=== PATIENT | female | born 1995 | race Two or more races ===

== ENCOUNTER 2019-01-31 08:21 | Emergency (ER) | payer OTHER ==
[2019-01-31 08:24] VITALS: BP 120/68; PULSE 107; TEMP 98.2; BMI 23.8
[2019-01-31] MEDS ORDERED: DEXAMETHASONE 4 MG TABLET (FP) PO ONE (08:45)
[2019-01-31] MEDS ORDERED: DEXAMETHASONE SOD PHOSPHATE 10 MG/1 ML VIAL ONE (08:45)
--- NOTE | 2019-01-31 08:45 | PDOC ---
History of Present Illness - General Chief Complaint: Sore Throat Stated Complaint: SORE THROAT Time Seen by Provider: 01/31/19 08:32 History Source: Patient Exam Limitations: No Limitations - History of Present Illness Associated Symptoms: reports: cough, fever/chills. denies: headaches, loss of appetite, nausea/vomiting, shortness of breath, syncope, weakness Past History - Travel Traveled outside of the country in the last 30 days: No Close contact w/someone who was outside of country & ill: No - Past Medical History Allergies/Adverse Reactions: Allergies Allergy/AdvReac Type Severity Reaction Status Date / Time No Known Allergies Allergy Verified 01/31/19 08:24 Home Medications: Ambulatory Orders Ibuprofen [Ibu] 600 mg PO ACDIN 7 Days #21 tablet 01/31/19 COPD: No - Surgical History Appendectomy: Yes - Reproductive History Therapeutic (s) & number: Yes (08/2012) - Immunization History Immunization Up to Date: Yes - Psycho Social/Smoking Cessation Hx Smoking Status: No Smoking History: Never smoked Number of Cigarettes Smoked Daily: 0 Review of Systems - Review of Systems Constitutional: Yes: Fever. No: Chills HEENTM: Yes: Nose Bleeding, Throat Pain, Throat Swelling. No: Ear Pain, Ear Discharge, Nose Pain, Nose Congestion, Difficulty Swallowing Respiratory: Yes: Cough. No: Shortness of Breath, SOB at Rest, Wheezing, Productive cough Cardiac (ROS): No: Chest Pain Neurological: No: Headache, Dizziness *Physical Exam - Vital Signs Last Vital Signs Temp Pulse Resp BP Pulse Ox 98.2 F 107 H 18 120/68 99 01/31/19 08:21 01/31/19 08:21 01/31/19 08:21 01/31/19 08:21 01/31/19 08:21 - Physical Exam General Appearance: Yes: Nourished HEENT: positive: EOMI, DEVANG, Pharyngeal Erythema. 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 Patient admitted to some fever this morning. Denies any drooling, shortness of breath, sick contact. Rapid strep sent Dexamethasone given Rapid strep negative Discharge - Discharge Information Problems reviewed: Yes Clinical Impression/Diagnosis: Sore throat Condition: Stable Disposition: HOME - Admission No - Additional Discharge Information Prescriptions: Ibuprofen [Ibu] 600 mg PO ACDIN 7 Days #21 tablet Prescription Drug Monitoring Program (I-STOP) results: I-STOP not reviewed - Follow up/Referral Referrals: Valeria Cherry [Primary Care Provider] - - Patient Discharge Instructions Patient Printed Discharge Instructions: Sore Throat Additional Instructions: Your rapid strep today was negative. A culture was sent out to the lab if positive you will be contacted for antibiotic. Please take Motrin for pain and gargle with salt warm water Return to the emergency room if worsening symptoms occurs otherwise follow-up with your primary care doctor. - Post Discharge Activity
== END 2019-01-31 10:00 | disposition home or self-care (01) ==
LOC: JERFT 08:21
DX: J02.9 Acute pharyngitis, unspecified (principal)
CPT/HCPCS: 87070; 87880; 99282-25

== ENCOUNTER 2019-03-26 15:03 | Emergency (ER) | payer OTHER ==
--- NOTE | 2019-03-26 15:09 | PDOC ---
Rapid Medical Evaluation Time Seen by Provider: 03/26/19 15:07 Medical Evaluation: Allergies Allergy/AdvReac Type Severity Reaction Status Date / Time No Known Allergies Allergy Verified 01/31/19 08:24 03/26/19 15:08 Pt c/o: left arm weakness x 3 days, left breast pain worsened in the mid back, no sob Pt on brief exam: hr 104, lcta Pt ordered for: ekg pt to proceed to the ED 03/26/19 15:10 Discharge Disposition - Diagnosis Muscle spasm - Discharge Dispostion Disposition: HOME Condition at time of disposition: Stable - Prescriptions Prescriptions: Diazepam [Valium] 5 mg PO ONCE #1 tablet MDD 1 Methocarbamol [Robaxin -] 1,500 mg PO Q8H PRN #42 tablet PRN Reason: Muscle Spasms - Referrals Referrals: Valeria Cherry [Primary Care Provider] - - Patient Instructions Additional Instructions: Rest, no heavy lifting or exercise until pain is resolved Hot soaks to neck and low back as often as possible/hot showers or Jacuzzis No massage or therapy until spasm is gone Continue naproxen 2-220 mg tablets every 12 hours for the next 3 days then as needed for pain and swelling Robaxin 1500mg every 8 hours as needed for spasm Valium 5 mg orally once when you get home. If not significant improvement within 24 hours with medication and rest regime, followup with private physician for change in medications and /or therapy. - Post Discharge Activity
[2019-03-26 15:12] VITALS: BP 142/61; PULSE 104; TEMP 98.3; BMI 24.0
--- NOTE | 2019-03-26 15:51 | PDOC ---
History of Present Illness - General Chief Complaint: Pain, Acute Stated Complaint: LT ARM PAIN Time Seen by Provider: 03/26/19 15:07 History Source: Patient Exam Limitations: No Limitations - History of Present Illness Initial Comments: 03/26/19 15:55 HISTORY OF PRESENT ILLNESS: 23-year-old otherwise healthy woman who presents emergency department for evaluation of left upper extremity weakness and back pain which started approximately 3 days ago. Patient reports she has intermittent gym use in her last visit to the gym to workout was on Friday of this week. Patient reports she did not warm up prior to heavy lifting and extensive upper body training using free weights. She denies any pain in her left hand, forearm or upper arm. No recent travel or sick contacts. PAST MEDICAL HISTORY: Denies past medical history SURGICAL HISTORY: Denies ALLERGIES: No known drug allergies REVIEW OF SYSTEMS General/Constitutional: Denies fever or chills. Denies weakness, weight change. HEENT: Denies change in vision. Denies ear pain or discharge. Denies sore throat. Cardiovascular: Denies chest pain or shortness of breath. Respiratory: Denies cough, wheezing, or hemoptysis. Gastrointestinal: Denies nausea, vomiting, diarrhea or constipation. Denies rectal bleeding. Genitourinary: Denies dysuria, frequency, or change in urination. Musculoskeletal: See HPI Skin and breasts: Denies rash or easy bruising. Neurologic: Denies headache, vertigo, loss of consciousness, or loss of sensation. Psychiatric: Denies depression or anxiety. Endocrine: Denies increased thirst. Denies abnormal weight change. Hematologic/Lymphatic: Denies anemia, easy bleeding, or history of blood clots. Allergic/Immunologic: Denies hives or skin allergy. Denies latex allergy. PHYSICAL EXAM General Appearance: Well-appearing, appropriately dressed. No apparent distress , no intoxication. Neck: Supple. Trachea midline. No tenderness, rigidity, carotid bruit, stridor , lymphadenopathy, or thyromegaly. Palpable muscle spasm present in the left sternocleidomastoid. Respiratory/Chest: Lungs CTAB. No shortness of breath, chest tenderness, respiratory distress, accessory muscle use. No crackles, rales, rhonchi, stridor , wheezing, dullness Cardiovascular: RRR. S1, S2. No JVD, murmur, bradycardia, tachycardia. Vascular Pulses: Radial (R): 2+, radial (L): 2+ Lymphatic: No adenopathy, tenderness. Musculoskeletal/Extremities: Normal inspection. FROM of all extremities, normal capillary refill. Pelvis Stable. No CVA tenderness. No tenderness to extremities, pedal edema, swelling, erythema or deformity. Palpable muscle spasm present to the left trapezius at the insertion point at the cervical spine as well as at the scapula. Full range of motion present. Increased scapular pain with range of motion of the left shoulder. Neurovascularly intact. Integumentary: Appropriate color, dry, warm. No cyanosis, erythema, jaundice or rash Past History - Past Medical History Allergies/Adverse Reactions: Allergies Allergy/AdvReac Type Severity Reaction Status Date / Time No Known Allergies Allergy Verified 03/26/19 15:08 Home Medications: Ambulatory Orders Ibuprofen [Ibu] 600 mg PO ACDIN 7 Days #21 tablet 01/31/19 Diazepam [Valium] 5 mg PO ONCE #1 tablet MDD 1 03/26/19 Methocarbamol [Robaxin -] 1,500 mg PO Q8H PRN #42 tablet 03/26/19 COPD: No - Surgical History Appendectomy: Yes - Reproductive History Therapeutic (s) & number: Yes (08/2012) - Immunization History Immunization Up to Date: Yes - Psycho Social/Smoking Cessation Hx Smoking Status: No Smoking History: Never smoked Number of Cigarettes Smoked Daily: 0 Hx Alcohol Use: No Drug/Substance Use Hx: No *Physical Exam - Vital Signs Last Vital Signs Temp Pulse Resp BP Pulse Ox 98.3 F 104 H 18 142/61 99 03/26/19 15:09 03/26/19 15:09 03/26/19 15:03/26/19 15:09 03/26/19 15:09 Medical Decision Making - Medical Decision Making 03/26/19 15:50 A/P: 23-year-old woman with muscle spasms in the left upper back and shoulder Good strength 5/5 in the right arm and 4/5 in the left arm. Two-point discrimination is within normal limits to bilateral upper extremities Full range of motion of fingers, wrist, elbow and shoulder of the left arm. Palpable muscle spasms present in the left trapezius and sternocleidomastoid muscles. Patient is driving home today and is refusing pain relieving medication. Weakness is likely due to muscle spasms in the left shoulder at the insertion point of the trapezius muscle. Discharge home with prescription for Valium 5 mg orally be taken once and Robaxin 1500 mg 3 times daily for the next 7 days. I discussed the physical exam findings, ancillary test results and final diagnoses with the patient. I answered all of the patient's questions. The patient was satisfied with the care received and felt comfortable with the discharge plan and treatment plan. The patient will call their primary care physician within 24 hours to arrange follow-up and will return to the Emergency Department with any new, persistent or worsening symptoms. Discharge - Discharge Information Problems reviewed: Yes Clinical Impression/Diagnosis: Muscle spasm Condition: Stable Disposition: HOME - Admission No - Additional Discharge Information Prescriptions: Diazepam [Valium] 5 mg PO ONCE #1 tablet MDD 1 Methocarbamol [Robaxin -] 1,500 mg PO Q8H PRN #42 tablet PRN Reason: Muscle Spasms - Follow up/Referral Referrals: Valeria Cherry [Primary Care Provider] - - Patient Discharge Instructions Additional Instructions: Rest, no heavy lifting or exercise until pain is resolved Hot soaks to neck and low back as often as possible/hot showers or Jacuzzis No massage or therapy until spasm is gone Continue naproxen 2-220 mg tablets every 12 hours for the next 3 days then as needed for pain and swelling Robaxin 1500mg every 8 hours as needed for spasm Valium 5 mg orally once when you get home. If not significant improvement within 24 hours with medication and rest regime, followup with private physician for change in medications and /or therapy. - Post Discharge Activity
== END 2019-03-26 15:51 | disposition home or self-care (01) ==
LOC: JERFT 15:03
DX: M62.838 Other muscle spasm (principal)
CPT/HCPCS: 99281-25